=== PATIENT | male | born 1985 | race Hispanic/Latino ===

== ENCOUNTER 2020-11-14 13:50 | Emergency (ER) | payer BC, SELFPAY ==
[2020-11-14] MEDS ORDERED: lisinopriL 20 MG TAB ONE (15:05)
[2020-11-14] MEDS ORDERED: AMLODIPINE 10 MG TAB ONE (15:05)
[2020-11-14] MEDS ORDERED: ACETAMINOPHEN 500 MG TAB ONE (15:57)
[2020-11-14] MEDS ORDERED: cloNIDine HCL 0.1 MG TAB ONE (16:00)
--- NOTE | 2020-11-14 16:52 | ER ---
Nurse's Notes [facility] Name: Carlos Jean Age: 35 yrs Sex: Male : 1985 Arrival Date: 11/14/2020 Time: 13:54 Bed 4 Private MD: Diagnosis: Essential (primary) hypertension Presentation: 11/14 14:01 Chief complaint: Patient states: Headache started late yesterday. Last time I had a ca1 headache like this, my BP was really high. Have not take my BP meds > 1 month. Coronavirus screen: Client denies travel out of the [place] in the last 14 days. headache, Client presents with at least one sign or symptom that may indicate coronavirus-19. Standard/surgical mask placed on the client. Provider contacted for isolation considerations. Ebola Screen: Patient negative for fever greater than or equal to 101.5 degrees Fahrenheit, and additional compatible Ebola Virus Disease symptoms Patient denies exposure to infectious person. Patient denies travel to an Ebola-affected area in the 21 days before illness onset. No symptoms or risks identified at this time. Initial Sepsis Screen: Does the patient meet any 2 criteria? No. Patient's initial sepsis screen is negative. Does the patient have a suspected source of infection? No. Patient's initial sepsis screen is negative. Risk Assessment: Do you want to hurt yourself or someone else?. Onset of symptoms was November 13, 2020. 14:01 Method Of Arrival: Ambulatory ca1 14:01 Acuity: GUS 2 ca1 Triage Assessment: 14:05 General: Appears in no apparent distress. comfortable, Behavior is calm, cooperative, bp appropriate for age. Pain: Complains of pain in head. EENT: No signs and/or symptoms were reported regarding the EENT system. Neuro: Reports headache. Cardiovascular: No deficits noted. Respiratory: No deficits noted. GI: No signs and/or symptoms were reported involving the gastrointestinal system. : No signs and/or symptoms were reported regarding the genitourinary system. Derm: No deficits noted. Musculoskeletal: No deficits noted. Historical: - Allergies: 14:06 No Known Allergies; ca1 - Home Meds: 14:06 Metformin Oral [Active]; lisinopril Oral [Active]; ca1 - PMHx: 14:06 Hypertension; Diabetes - NIDDM; ca1 - PSHx: 14:06 abdominal surgery; Knee surgery; ca1 - Immunization history:: Flu vaccine is not up to date. - Social history:: Smoking status: Patient reports the use of cigarette tobacco products, denies chronic smoking, but will smoke occasionally, Reported history of juuling and/or vaping. Screenin:05 Abuse screen: Denies threats or abuse. Denies injuries from another. Nutritional bp screening: No deficits noted. Tuberculosis screening: No symptoms or risk factors identified. Fall Risk None identified. Assessment: 14:05 General: SEE TRIAGE NOTE. bp 15:00 Reassessment: No changes from previously documented assessment. Patient and/or family bp updated on plan of care and expected duration. Pain level reassessed. Patient is alert, oriented x 3, equal unlabored respirations, skin warm/dry/pink. 16:00 Reassessment: No changes from previously documented assessment. Patient and/or family bp updated on plan of care and expected duration. Pain level reassessed. Patient is alert, oriented x 3, equal unlabored respirations, skin warm/dry/pink. 16:58 Reassessment: PT D/C HOME AMBULATORY, DX WITH HTN. bp Vital Signs: 14:01 BP 190 / 129 RA; Pulse 87; Resp 17 S; Temp 97.1(TE); Pulse Ox 99% on R/A; Weight 116.57 ca1 kg (R); Height 6 ft. 1 in. (185.42 cm) (R); Pain 9/10; 14:06 BP 201 / 142 LA; ca1 15:30 BP 181 / 139; Pulse 82; Resp 19; Pulse Ox 96% ; bp 16:57 BP 167 / 119; Pulse 81; Resp 17; Temp 97.3; Pulse Ox 97% ; bp 14:01 Body Mass Index 33.91 (116.57 kg, 185.42 cm) ca1 Luís Coma Score: 14:41 Eye Response: spontaneous(4). Verbal Response: oriented(5). Motor Response: obeys kb commands(6). Total: 15. ED Course: 13:54 Patient arrived in ED. ds1 14:04 Triage completed. ca1 14:05 [facility] Sinclair [facility]C [facility] kb 14:05 Sundar Lee MD is Attending Physician. kb 14:05 Patient has correct armband on for positive identification. Bed in low position. Call bp light in reach. Side rails up X2. 14:06 Arm band placed on right wrist. ca1 14:11 Kuldeep Gipson, RN is Primary Nurse. bp 14:41 EKG done, by ED staff, reviewed by Sundar Lee MD[facility] 16:58 No provider procedures requiring assistance completed. Patient did not have IV access bp during this emergency room visit. Administered Medications: 14:45 Drug: amLODIPine 10 mg Route: PO; bp 16:01 Follow up: Response: No adverse reaction bp 14:45 Drug: Lisinopril 20 mg Route: PO; bp 16:01 Follow up: Response: No adverse reaction bp 15:45 Drug: Tylenol 1000 mg Route: PO; bp 16:01 Follow up: Response: No adverse reaction bp 15:45 Drug: cloNIDine 0.1 mg Route: PO; bp 16:01 Follow up: Response: No adverse reaction bp Outcome: 16:51 Discharge ordered by MD. kb 16:58 Discharged to home ambulatory. bp 16:58 Condition: stable 16:58 Discharge instructions given to patient, Instructed on discharge instructions, follow up and referral plans. medication usage, Demonstrated understanding of instructions, follow-up care, medications, Prescriptions given X 4. 16:59 Patient left the ED. bp Signatures: Leticia Sinclair, LEVELMAN-C LEVELMAN-Bernice Nuñez ds1 [facility] Kuldeep Gipson, RN RN bp Lela Abad RN RN ca1 Corrections: (The following items were deleted from the chart) 14:06 14:01 Acuity: GUS 3 ca1 ca1
--- NOTE | 2020-11-14 16:52 | EDPHYS ---
Physician Documentation [facility] Name: Carlos Jean Age: 35 yrs Sex: Male : 1985 Arrival Date: 11/14/2020 Time: 13:54 Bed 4 Private MD: ED Physician Sundar Lee HPI: 11/14 14:39 This 35 yrs old Male presents to ER via Ambulatory with complaints of High kb Blood Pressure. 14:39 The patient complains of pain to the top of head. The patient describes the headache as kb constant. The patient has experienced similar episodes in the past. The patient has not recently seen a physician. Pt reports he gets headache like his when his BP is elevated. States he came here in September for work and didn't bring his BP meds with him. . 14:40 Onset: The symptoms/episode began/occurred 2 day(s) ago. Associated signs and symptoms: kb Pertinent positives: This patient does not have any pertinent positive signs or symptoms associated with a headache. Pertinent negatives: altered mental status, dizziness, fever, malaise, nausea, neck stiffness, paresthesias, Photophobia rash, sinus congestion, sinus tenderness, vision changes, vision loss, vomiting, weakness, vertigo. Severity of symptoms: At its worst the pain was mild, moderate, in the emergency department the pain is unchanged. Headache History: The patient has had previous headaches and this one is similar to previous episodes. The symptoms are alleviated by nothing. the symptoms are aggravated by nothing. Historical: - Allergies: 14:06 No Known Allergies; ca1 - Home Meds: 14:06 Metformin Oral [Active]; lisinopril Oral [Active]; ca1 - PMHx: 14:06 Hypertension; Diabetes - NIDDM; ca1 - PSHx: 14:06 abdominal surgery; Knee surgery; ca1 - Immunization history:: Flu vaccine is not up to date. - Social history:: Smoking status: Patient reports the use of cigarette tobacco products, denies chronic smoking, but will smoke occasionally, Reported history of juuling and/or vaping. ROS: 14:37 Constitutional: Negative for fever, chills, and weight loss, Eyes: Negative for injury, kb pain, redness, and discharge, Cardiovascular: Negative for chest pain, palpitations, and edema, Respiratory: Negative for shortness of breath, cough, wheezing, and pleuritic chest pain, Abdomen/GI: Negative for abdominal pain, nausea, vomiting, diarrhea, and constipation, MS/Extremity: Negative for injury and deformity, Skin: Negative for injury, rash, and discoloration. 14:37 Neuro: Positive for headache. Exam: 14:38 Constitutional: This is a well developed, well nourished patient who is awake, alert, kb and in no acute distress. Head/Face: Normocephalic, atraumatic. Eyes: Pupils equal round and reactive to light, extra-ocular motions intact. Lids and lashes normal. Conjunctiva and sclera are non-icteric and not injected. Cornea within normal limits. Periorbital areas with no swelling, redness, or edema. Chest/axilla: Normal chest wall appearance and motion. Nontender with no deformity. No lesions are appreciated. Cardiovascular: Regular rate and rhythm with a normal S1 and S2. No gallops, murmurs, or rubs. Normal PMI, no JVD. No pulse deficits. Respiratory: Lungs have equal breath sounds bilaterally, clear to auscultation and percussion. No rales, rhonchi or wheezes noted. No increased work of breathing, no retractions or nasal flaring. Skin: Warm, dry with normal turgor. Normal color with no rashes, no lesions, and no evidence of cellulitis. MS/ Extremity: Pulses equal, no cyanosis. Neurovascular intact. Full, normal range of motion. 14:38 Neuro: Orientation: is normal, to person, place, time \T\ situation. Mentation: is normal, able to follow commands, Motor: is normal, moves all fours, Sensation: is normal, Gait: is steady, at a normal pace. 16:59 ECG was reviewed by the Attending Physician. kb Vital Signs: 14:01 BP 190 / 129 RA; Pulse 87; Resp 17 S; Temp 97.1(TE); Pulse Ox 99% on R/A; Weight 116.57 ca1 kg (R); Height 6 ft. 1 in. (185.42 cm) (R); Pain 9/10; 14:06 BP 201 / 142 LA; ca1 15:30 BP 181 / 139; Pulse 82; Resp 19; Pulse Ox 96% ; bp 16:57 BP 167 / 119; Pulse 81; Resp 17; Temp 97.3; Pulse Ox 97% ; bp 14:01 Body Mass Index 33.91 (116.57 kg, 185.42 cm) ca1 Luís Coma Score: 14:41 Eye Response: spontaneous(4). Verbal Response: oriented(5). Motor Response: obeys kb commands(6). Total: 15. MDM: 14:11 Patient medically screened. 14:37 Data reviewed: vital signs, nurses notes. Data interpreted: Pulse oximetry: on room air kb is 99 %. Interpretation: normal. 14:41 Counseling: I had a detailed discussion with the patient and/or guardian regarding: the historical points, exam findings, and any diagnostic results supporting the discharge/admit diagnosis, the need for outpatient follow up, a family practitioner, to return to the emergency department if symptoms worsen or persist or if there are any questions or concerns that arise at home. ED course: Pt was able to get a hold of the clinic he goes to in [place]. Pt normally takes Metformin 500mg BID, Glipizide 5mg daily, amlodipine 10mg daily, atorvastatin 20mg daily and lisinopril 20mg daily. Pt has metformin but not the others so I will refill them now. List of PCPs will be given to pt upon discharge. . 15:18 Data reviewed: I have discussed the patient's presentation/case with the attending Emergency Department Physician; and as a result, I will discharge patient. 16:52 ED course: Pt reports headache is better and he is ready to go home. 11/14 14:18 Order name: EKG; Complete Time: 14:19 11/14 14:18 Order name: EKG - Nurse/Tech; Complete Time: 14:40 11/14 16:27 Order name: Blood Pressure Recheck; Complete Time: 16:46 kb EC:59 Rate is 76 beats/min. Rhythm is regular. QRS [place] is Normal. [place] interval is normal at kb 154 msec. QRS interval is normal at 88 msec. QT interval is normal at 374 msec. Administered Medications: 14:45 Drug: amLODIPine 10 mg Route: PO; bp 16:01 Follow up: Response: No adverse reaction bp 14:45 Drug: Lisinopril 20 mg Route: PO; bp 16:01 Follow up: Response: No adverse reaction bp 15:45 Drug: Tylenol 1000 mg Route: PO; bp 16:01 Follow up: Response: No adverse reaction bp 15:45 Drug: cloNIDine 0.1 mg Route: PO; bp 16:01 Follow up: Response: No adverse reaction bp Disposition: 18:32 Co-signature as Attending Physician, Sundar Lee MD. rn Disposition: 11/14/20 16:51 Discharged to Home. Impression: Essential (primary) hypertension. - Condition is Stable. - Discharge Instructions: Hypertension, [id number]. - Prescriptions for amlodipine 10 mg Oral tablet - take 1 tablet by ORAL route once daily; 30 tablet. atorvastatin 20 mg Oral tablet - take 1 tablet by ORAL route once daily; 30 tablet. Lisinopril 20 mg Oral Tablet - take 1 tablet by ORAL route once daily; 30 tablet. Glipizide 5 mg Oral Tablet - take 1 tablet by ORAL route once daily before a meal; 30 tablet. - Medication Reconciliation Form, Thank You Letter, Antibiotic Education, Prescription Opioid Use form. - Follow up: Emergency Department; When: As needed; Reason: Worsening of condition. Follow up: Private Physician; When: 2 - 3 days; Reason: Recheck today's complaints, Continuance of care, Re-evaluation by your physician. Signatures: Leticia Sinclair, MANAGING DIRECTOR-C MANAGING DIRECTOR-Ckb Sundar Lee MD MD rn Peltier, Brian, RN RN bp AcLela watson RN RN [facility] Corrections: (The following items were deleted from the chart) 16:59 16:51 11/14/2020 16:51 Discharged to Home. Impression: Essential (primary) bp hypertension. Condition is Stable. Discharge Instructions: Hypertension, [id number]. Prescriptions for amlodipine 10 mg Oral tablet - take 1 tablet by ORAL route once daily; 30 tablet, atorvastatin 20 mg Oral tablet - take 1 tablet by ORAL route once daily; 30 tablet, Lisinopril 20 mg Oral Tablet - take 1 tablet by ORAL route once daily; 30 tablet, Glipizide 5 mg Oral Tablet - take 1 tablet by ORAL route once daily before a meal; 30 tablet. and Forms are Medication Reconciliation Form, Thank You Letter, Antibiotic Education, Prescription Opioid Use. Follow up: Emergency Department; When: As needed; Reason: Worsening of condition. Follow up: Private Physician; When: 2 - 3 days; Reason: Recheck today's complaints, Continuance of care, Re-evaluation by your physician. kb
[2020-11-14 21:04] VITALS: BP 167/119; TEMP 97.3; O2SAT 97
--- NOTE | 2020-11-15 06:23 | EKG ---
Test Date: 2020-11-14 Test Time: 14:37:52 [employer]: CHRIS MEASUREMENT RESULTS: Intervals: Rate: 76 MA: 154 QRSD: 88 QT: 374 QTc: 420 [place]: P: 28 MA: 154 QRS: -15 T: 137 INTERPRETIVE STATEMENTS: Normal sinus rhythm Minimal voltage criteria for LVH, may be normal variant T wave abnormality, consider lateral ischemia Abnormal ECG No previous ECG available for comparison Electronically Signed On 11-15-20 06:21:21 LOLLYPOP MACHINE OPERATOR by Winston Carlos
== END 2020-11-14 16:59 | disposition home or self-care (01) ==
LOC: ER 13:50
DX: I10 Essential (primary) hypertension (principal); E11.9 Type 2 diabetes mellitus without complications; F17.210 Nicotine dependence, cigarettes, uncomplicated
CPT/HCPCS: 93005; 99283